=== PATIENT | female | born 1980 | race Caucasian/White ===

== ENCOUNTER 2021-04-05 09:59 | Emergency (ER) | payer OTHER, SELFPAY ==
[2021-04-05 10:10] VITALS: BP 174/107; PULSE 79; RESP 18; TEMP 36.9; O2SAT 99
--- NOTE | 2021-04-05 10:22 | ED.URI ---
HPI - URI/Sore Throat General Chief Complaint: Upper Respiratory Infection Stated Complaint: Cough/Congestion Time Seen by Provider: 04/05/21 10:22 Source: patient, RN notes reviewed and old records reviewed Mode of arrival: ambulatory Limitations: no limitations History of Present Illness HPI Narrative: 40-year-old female who presents to [facility] care with complaints of cough, sinus congestion and drainage and sore throat discomfort for the past 2-3 days. Patient states that she went to work with her symptoms and she was sent home and told she had to go to doctor and get cleared to come back to work. Patient reports that she had Bronchitis 2 months ago and continues to have lingering cough plus she continues to use tobacco daily. Patient states that she has not had Covid vaccinations, denies any loss of taste or smell, body aches, fevers, chills, or sweats. MD elicited complaint: cough, sore throat, rhinorrhea and nasal congestion Related Data Home Medications Medication Instructions Recorded Confirmed amlodipine 5 mg PO DAILY 04/05/21 04/05/21 Allergies Allergy/AdvReac Type Severity Reaction Status Date / Time No Known Allergies Allergy Unverified 04/05/21 10:19 Review of Systems Review of Systems: CONSTITUTIONAL: Denies fever, chills, or sweats. EYES: Denies visual changes, redness, or discharge. ENT: Positive rhinorrhea, congestion, sore throat, no otalgia. CARDIOVASCULAR: Denies chest pain, palpitations, or edema. RESPIRATORY: positive for cough denies dyspnea. GASTROINTESTINAL: Denies abdominal pain, nausea, vomiting, or diarrhea. GENITOURINARY: Denies dysuria or hematuria. SKIN: Denies rash or itching. MUSCULOSKELETAL: Denies back pain, joint pain, denies any body aches NEUROLOGIC: Positive for headache, no numbness, or weakness. PSYCHIATRIC: Positive for anxiety or depression. All systems reviewed & are unremarkable except as noted in HPI and below PMFSH Past Medical History Medical History (Updated 04/06/21 @ 00:00 by [facility]) Anxiety and depression Hx of migraines Hypertension Surgical History Surgical History (Updated 04/05/21 @ 10:24 by Rachel Ledezma, [place]) History of hysterectomy History of tonsillectomy and adenoidectomy Hx of cholecystectomy Family History Family History (Updated 04/06/21 @ 10:00 by Rachel Ledezma NP) Mother Hypertension Heart disease Diabetes mellitus Grandparent Diabetes mellitus Cerebrovascular accident Breast cancer Social History Social History (Updated 04/06/21 @ 10:02 by Rachel Ledezma NP) Smoking status: Current every day smoker Alcohol intake: current Alcohol use details: social Substance use: never Living arrangements: with family Gender identity (if verbalized by the patient): Female Comments At time of signature, agree with nursing past medical, surgical, social and family history. There is no relevant family history pertinent to the presenting complaint Exam Narrative: GENERAL: Well-appearing, well-nourished, and in no acute distress. HEAD: Normocephalic, atraumatic. EYES: PERRLA and EOMI. ENT: Nares patent with clear rhinorrhea no epistaxis. Mucous membranes moist.TM's normal with good light reflex, throat red with no lesions or exudates, tonsils absent, some post nasal drainage present. NECK: Supple.no lymphadenopathy CHEST: Clear to auscultation. No respiratory distress.SAO2 99% on room air HEART: Regular rate and rhythm. No murmur heard. Normal peripheral pulses. ABDOMEN: Soft, nontender, nondistended, normal active bowel sounds. EXTREMITIES: Normal range of motion. No edema. SKIN: Warm, dry, no rash. NEURO: No focal deficits. Alert and oriented x3. Course Vital Signs Vital signs: Vital Signs Temperature 36.9 C 04/05/21 10:10 Pulse Rate 79 04/05/21 10:10 Respiratory Rate 18 04/05/21 10:10 Blood Pressure 174/107 H 04/05/21 10:10 Pulse Oximetry 99 04/05/21 10:10 Temperature 36
== END 2021-04-05 11:06 | disposition home or self-care (01) ==
PROVIDERS: Emergency Provider Registered Nurse
DX: J06.9 Acute upper respiratory infection, unspecified (principal); Z20.822 Contact with and (suspected) exposure to COVID-19; I10 Essential (primary) hypertension
CPT/HCPCS: 87081; 87426; 87880; 99213; C9803; G0463

== ENCOUNTER 2024-05-24 11:52 | Emergency (ER) | payer OTHER, SELFPAY ==
[2024-05-24 11:59] VITALS: BP 129/88; PULSE 89; RESP 16; TEMP 36.8; O2SAT 98
--- NOTE | 2024-05-24 12:00 | ED.EYEPROB ---
HPI - Eye Problem General Chief complaint: Eye Problems Stated complaint: Eye Problem Time Seen by Provider: 05/24/24 12:18 Source: patient, RN notes reviewed and old records reviewed Mode of arrival: ambulatory Limitations: no limitations History of Present Illness HPI Narrative: 43 year old female who presents to [facility] care with complaints of awakening this morning with right eye red,painful and with some yellow green drainage. Patient reports that she has been exposed to pink eye. Patient reports no acute pain to her right eye or visual changes. patient reports that she did have some headache congestion about 2 weeks ago but that has resolved. chief complaint: eye redness and other (drainage) Onset (ago): day(s) (1) Onset description: awoke with symptoms Eye Symptoms: redness and discharge Severity: moderate Treatments Prior to Arrival: other (warm compress) Related Data Home Medications ?Medication ?Instructions ?Recorded ?Confirmed ?Last Taken ?Type amlodipine 5 mg tablet 5 mg PO DAILY 04/05/21 04/05/21 Unknown History atorvastatin 10 mg tablet mg 05/24/24 Unknown History metformin 500 mg tablet,extended mg PO 05/24/24 Unknown History release 24 hr semaglutide 3 mg tablet (Rybelsus) mg PO 05/24/24 Unknown History valsartan 160 mg tablet mg 05/24/24 Unknown History Allergies Allergy/AdvReac Type Severity Reaction Status Date / Time No Known Allergies Allergy Verified 05/24/24 12:07 Review of Systems Review of Systems: CONSTITUTIONAL: Denies malaise, chills, sweats, or fever. EYES: Denies visual changes, positive for redness, or discharge right eye ENT: Reports no rhinorrhea, congestion, sinus pain, otalgia and sore throat. CARDIOVASCULAR: Denies chest pain, palpitations, or edema. RESPIRATORY: Reports no cough.? Denies dyspnea. GASTROINTESTINAL: Denies abdominal pain, nausea, vomiting, diarrhea SKIN: Denies rash or itching. MUSCULOSKELETAL: Denies myalgia. NEUROLOGIC: Denies headache. All systems reviewed & are unremarkable except as noted in HPI and below PMFSH Past Medical History Medical History Hyperlipidemia Diabetes Anxiety and depression Hx of migraines Hypertension Surgical History Surgical History History of tonsillectomy and adenoidectomy History of hysterectomy Hx of cholecystectomy Family History Family History Mother Hypertension Heart disease Diabetes mellitus Grandparent Diabetes mellitus Cerebrovascular accident Breast cancer Social History Social History Smoking status: Current every day smoker Alcohol intake: current Alcohol use details: social Substance use: never Living arrangements: with family Gender identity (if verbalized by the patient): Female Comments At time of signature, agree with nursing past medical, surgical, social and family history. There is no relevant family history pertinent to the presenting complaint Exam Narrative: GENERAL: Well-appearing, well-nourished, and in no acute distress. HEAD: Normocephalic EYES: PERRLA, conjunctivae red and sclera red with greenish yellow drainage from right eye, no visual changes or sharp pain to right eye, Visual acuity Right 20/40. Left 20/25 without corrective lenses. ENT: Nares clear, turbinates edematous and erythematous, clear discharge. Mucous membranes moist. TM pearly smalls with dull light reflex bilaterally; no tragal tenderness. Oropharynx erythematous without lesions. Tonsils not present and throat without exudate, no drooling, no hoarseness, no trismus, uvula midline. NECK: Supple. No lymphadenopathy CHEST: Clear to auscultation, breath sounds equal. No wheezing, rhonchi, rales, or stridor. No respiratory distress, speaks in full sentences.SAO2 98% on room air HEART: Regular rate and rhythm. No murmur heard. SKIN: Warm, dry, no rash. NEURO: Alert and oriented x3. PSYCH: Normal mood and affect Course Course Emergency Course: Patient is aware of diagnosis, understands and agrees to treatment plan.? Anticipatory guidance given.? Patient agrees to follow-up as directed and is aware of reasons to seek care at the emergency department. Portions of this record may have been created with voice recognition software Level of Care: Express Care Visit Vital Signs Vital signs: Vital Signs Temperature 36.8 C 05/24/24 11:59 Pulse Rate 89 05/24/24 11:59 Respiratory Rate 16 05/24/24 11:59 Blood Pressure 129/88 05/24/24 11:59 Pulse Oximetry 98 05/24/24 11:59 Oxygen Delivery Room Air 05/24/24 11:59 Temperature 36.8 C 05/24/24 11:59 Pulse Rate 89 05/24/24 11:59 Respiratory Rate 16 05/24/24 11:59 Blood Pressure 129/88 05/24/24 11:59 Pulse Oximetry 98 05/24/24 11:59 Oxygen Delivery Room Air 05/24/24 11:59 Reviewed MDM - Eye Problem Differential Diagnosis Differential diagnosis: Likely conjunctivitis, subconjunctival hemorrhage and other (mucoid drainage right eye) Medical Records Attestation: I reviewed the patient's medical records. Lab Data Attestation: I reviewed the patient's lab results. Critical Care Time Critical Care Time Critical Care Time: No Discharge Plan Discharge Clinical Impression: Conjunctivitis of right eye Qualifiers: Conjunctivitis type: acute Acute conjunctivitis type: unspecified Qualified Code(s): H10.31 - Unspecified acute conjunctivitis, right eye Patient Disposition: Home, Self-Care Condition: Stable Instructions: Antibiotic Form, Conjunctivitis (ED) Additional Instructions: Cold compresses to the eyes for comfort May need warm compresses to remove debris in the morning When cleaning the eyes used a washcloth in one direction then change washcloths or use a cotton ball in one direction and then his cotton balls Eyedrops as directed--may be more soothing if left in the refrigerator Do not share medicine--do not touch the eye with the medicine Tylenol or ibuprofen for pain Avoid screen time--television, computer, tablet or phone. Also no reading or driving Follow-up with PCP or special education assistant as directed if no improvement 48 hours If your symptoms persist, change or worsen significantly before you can contact your personal physician then please, without delay, go to the emergency department for further evaluation. Follow-up with PCP in 7-10 days or sooner if needed Follow up with PCP soon in regards to your blood pressure which is elevated above threshold for referral. Blood pressure above 120/80 may indicate pre-hypertension. 129/88 Use good hand washing Patient Language: Indonesian Prescriptions: New ofloxacin 0.3 % drops See Rx Instructions .ROUTE .COMPLEX Qty: 10 0RF Rx Instructions: put 1-2 drps into affected eye(s) every 2-4 h x 2 days, then 1-2 drps 4 times/day days 3-7 No Action amlodipine 5 mg tablet 5 mg PO DAILY atorvastatin 10 mg tablet metformin 500 mg tablet extended release 24 hr PO valsartan 160 mg tablet Rybelsus 3 mg tablet PO Follow-up/Referrals: PHYSICIAN NOT ON STAFF,NONSTAFF [Primary Care Provider] - Stand Alone Forms: Work/School Release IP Time of Disposition: 12:26 Quality [place] Coma Scale Eyes: Open Verbal: Oriented and Alert Motor: Follows Commands [place] Coma Total Score: 15
--- OUTSIDE RECORDS SUMMARY | 2024-05-24 13:14 | XMS_ITS | Referral Summary ---
Author Organization [facility] Address [address] [place] [address] Care Team Providers Care Side Puller Name Role Phone Jeremiah Thomas MD Primary Care Provider [phone] Encounters Date Type Department Care Team Description 05/17/2024 Telephone [facility] 4 [facility] [address] [place] [address] Nadya Henriquez, SCRAP COLLECTOR 05/01/2024 7:30 AM DIRECTOR CLOUD TRANSFORMATION Office Visit [facility] Primary Care at [address] [phone] Jeremiah Thomas MD Annual physical exam (Primary Dx); Type 2 diabetes mellitus with hyperglycemia, without long-term current use of insulin (HCC); Hypertension, essential; Class 2 severe obesity due to excess calories with serious comorbidity and body mass index (BMI) of 37.0 to 37.9 in adult (HCC); Morbid obesity (HCC); Dizziness 04/26/2024 Telephone [facility] Primary Care at [address] [phone] Jeremiah Thomas MD 03/03/2024 Telephone [facility] Primary Care at [address] [phone] Jeremiah Thomas MD from Last 3 Months Allergies No known active allergies Medications atorvastatin (LIPITOR) 10 mg tablet Take 1 tablet (10 mg total) by mouth daily 90 tablet 3 11/24/19 24 025 Active valsartan (DIOVAN) 320 mg tablet Take 1 tablet (320 mg total) by mouth daily 90 tablet 1 09/13/20 24 025 Active metFORMIN XR (GLUCOPHAGE XR) 500 mg 24 hr tablet Take 2 tablets (1,000 mg total) by mouth 2 (two) times a day 360 tablet 1 01/26/20 24 025 Active dulaglutide (TRULICITY) 0.75 mg/0.5 mL pen injector Inject 0.5 mL (0.75 mg total) under the skin every 7 days 6 mL 02/08/20 24 Active amLODIPine (NORVASC) 5 mg tablet Take 1 tablet (5 mg total) by mouth daily 100 tablet 1 02/11/20 24 Active triamcinolone (KENALOG) 0.1 % ointmentIndicati ons:Skin Inflammation Apply topically 2 (two) times a day 30 g 1 02/15/20 24 Active semaglutide (RYBELSUS) 7 mg tablet Take 1 tablet (7 mg total) 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 90 tablet 03/30/20 24 025 Active metroNIDAZOLE (FLAGYL) 500 mg tablet Take 1 tablet (500 mg total) by mouth 2 (two) times a day for 7 days 14 tablet 05/17/19 25 025 Active chlorthalidone (HYGROTON) 25 mg tablet Take 1 tablet (25 mg total) by mouth daily 90 tablet 1 01/26/20 24 025 Discontinued Active Problems Problem Noted Date Diagnosed Date History of abnormal cervical Pap smear 4 Type 2 diabetes mellitus with hyperglycemia ([facility]) 11/24/2023 Assessment & Plan (05/01/2024 7:49 AM DIRECTOR CLOUD TRANSFORMATION): Lab Results Component Value Date HGBA1C 6.2 05/01/2024 HGBA1C 10.9 (H) 11/18/2023 HGBA1C 5.9 (H) 08/28/2021 Lab Results Component Value Date LDLCALC 90 11/18/2023 CREATININE 0.59 (L) 11/18/2023 Significant improvement Last A1c was above C/w metformin, rybelsus 7 mg C/w lipitor 10 mg every day C/w valsartan 320 mg start chlorthalidone Assessment & Plan (01/26/2024 4:10 PM CDT): Lab Results Component Value Date HGBA1C 10.9 (H) 11/18/2023 HGBA1C 5.9 (H) 08/28/2021 HGBA1C 5.4 06/04/2017 Lab Results Component Value Date LDLCALC 90 11/18/2023 CREATININE 0.59 (L) 11/18/2023 New dx Significant increase in last 2 years Last A1c was above C/w metformin with ramp up C/w lipitor 10 mg every day C/w valsartan 320 mg start chlorthalidone Assessment & Plan (11/24/2023 3:41 PM CDT): Lab Results Component Value Date HGBA1C 10.9 (H) 11/18/2023 HGBA1C 5.9 (H) 08/28/2021 HGBA1C 5.4 06/04/2017 Lab Results Component Value Date LDLCALC 90 11/18/2023 CREATININE 0.59 (L) 11/18/2023 New dx Significant increase in last 2 years Last A1c was above Start metformin with ramp up Start lipitor 10 mg every day C/w valsartan 160 mg every day for renal protection Check microalbumin Annual physical exam 11/18/2023 Assessment & Plan (05/01/2024 7:52 AM DIRECTOR CLOUD TRANSFORMATION): Discussed lifestyle modifications, diet and exercise. Routine blood work ordered/reviewed today. Yearly vision and dental examinations. Assessment & Plan (11/18/2023 3:29 PM CDT): Discussed lifestyle modifications, diet and exercise. Routine blood work ordered/reviewed today. Yearly vision and dental examinations. New onset type 2 diabetes mellitus ([facility]) 04/2023 Assessment & Plan (11/18/2023 3:29 PM CDT): Lab Results Component Value Date HGBA1C 5.9 (H) 08/28/2021 HGBA1C 5.4 06/04/2017 Lab Results Component Value Date LDLCALC 92 08/28/2021 CREATININE 0.76 08/28/2021 Previously controlled but worsening However, now she states she has been very thirsty and urinating frequently Morbid obesity 11/18/2023 Assessment & Plan (05/01/2024 7:48 AM DIRECTOR CLOUD TRANSFORMATION): Wt Readings from Last 3 Encounters: 05/01/24 132.6 kg (292 lb 4.8 oz) 02/15/24 (!) 142.3 kg (313 lb 12.8 oz) 01/26/24 (!) 147.4 kg (325 lb) BMI Readings from Last 3 Encounters: 05/01/24 37.51 kg/m?? 02/15/24 40.29 kg/m?? 01/26/24 41.71 kg/m?? Not at goal of bmi <30 Continue diet and exercise BMI Follow-up includes: nutrition counseling and exercise counseling. Assessment & Plan (01/26/2024 4:13 PM CDT): Wt Readings from Last 3 Encounters: 01/26/24 (!) 147.4 kg (325 lb) 11/24/23 (!) 157.6 kg (347 lb 8 oz) 11/18/23 (!) 158.5 kg (349 lb 6.4 oz) BMI Readings from Last 3 Encounters: 01/26/24 41.71 kg/m?? 11/24/23 44.60 kg/m?? 11/18/23 44.84 kg/m?? Not at goal of bmi <30 Continue diet and exercise BMI Follow-up includes: nutrition counseling and exercise counseling. Assessment & Plan (11/24/2023 3:58 PM CDT): Wt Readings from Last 3 Encounters: 11/24/23 (!) 157.6 kg (347 lb 8 oz) 11/18/23 (!) 158.5 kg (349 lb 6.4 oz) 11/27/21 (!) 154.2 kg (340 lb) BMI Readings from Last 3 Encounters: 11/24/23 44.60 kg/m?? 11/18/23 44.84 kg/m?? 11/27/21 43.63 kg/m?? Not at goal of bmi <30 Continue diet and exercise BMI Follow-up includes: nutrition counseling and exercise counseling. Assessment & Plan (11/18/2023 3:30 PM CDT): Wt Readings from Last 3 Encounters: 11/18/23 (!) 158.5 kg (349 lb 6.4 oz) 11/27/21 (!) 154.2 kg (340 lb) 08/28/21 (!) 151.5 kg (334 lb 1.6 oz) BMI Readings from Last 3 Encounters: 11/18/23 44.84 kg/m?? 11/27/21 43.63 kg/m?? 08/28/21 42.88 kg/m?? Not at goal of bmi <30 Continue diet and exercise BMI Follow-up includes: nutrition counseling and exercise counseling. Anxiety and depression 11/27/2021 Assessment & Plan (11/18/2023 3:29 PM CDT): Stable at this time Continue without medication Can discuss again in the future No concerns now Assessment & Plan (11/27/2021 4:36 PM CDT): Not well controlled at this time. Did not tolerate wellbutrin. also was on trazodone but did not work for her. S tates that she was previously on zoloft and that didn't work for her either Will do trial with lexapro 10 mg every day, can increase to BID in a few weeks if she is tolerating Class 2 severe obesity due t o excess calories with serious comorbidity and body mass index (BMI) of 37.0 to 37.9 in adult 08/28/2021 Assessment & Plan (05/01/2024 7:48 AM DIRECTOR CLOUD TRANSFORMATION): Wt Readings from Last 3 Encounters: 05/01/24 132.6 kg (292 lb 4.8 oz) 02/15/24 (!) 142.3 kg (313 lb 12.8 oz) 01/26/24 (!) 147.4 kg (325 lb) Wt Readings from Last 7 Encounters: 05/01/24 132.6 kg (292 lb 4.8 oz) 02/15/24 (!) 142.3 kg (313 lb 12.8 oz) 01/26/24 (!) 147.4 kg (325 lb) 11/24/23 (!) 157.6 kg (347 lb 8 oz) 11/18/23 (!) 158.5 kg (349 lb 6.4 oz) 11/27/21 (!) 154.2 kg (340 lb) 08/28/21 (!) 151.5 kg (334 lb 1.6 oz) BMI Readings from Last 3 Encounters: 05/01/24 37.51 kg/m?? 02/15/24 40.29 kg/m?? 01/26/24 41.71 kg/m?? Not at goal of bmi <30 Continue diet and exercise BMI Follow-up includes: nutrition counseling and exercise counseling. Assessment & Plan (01/26/2024 4:10 PM CDT): Wt Readings from Last 3 Encounters: 01/26/24 (!) 147.4 kg (325 lb) 11/24/23 (!) 157.6 kg (347 lb 8 oz) 11/18/23 (!) 158.5 kg (349 lb 6.4 oz) BMI Readings from Last 3 Encounters: 01/26/24 41.71 kg/m?? 11/24/23 44.60 kg/m?? 11/18/23 44.84 kg/m?? Not at goal of bmi <30 Continue diet and exercise BMI Follow-up includes: nutrition counseling and exercise counseling. Assessment & Plan (11/24/2023 3:58 PM CDT): Wt Readings from Last 3 Encounters: 11/24/23 (!) 157.6 kg (347 lb 8 oz) 11/18/23 (!) 158.5 kg (349 lb 6.4 oz) 11/27/21 (!) 154.2 kg (340 lb) BMI Readings from Last 3 Encounters: 11/24/23 44.60 kg/m?? 11/18/23 44.84 kg/m?? 11/27/21 43.63 kg/m?? Not at goal of bmi <30 Continue diet and exercise BMI Follow-up includes: nutrition counseling and exercise counseling. Assessment & Plan (11/18/2023 3:20 PM CDT): Wt Readings from Last 3 Encounters: 11/18/23 (!) 158.5 kg (349 lb 6.4 oz) 11/27/21 (!) 154.2 kg (340 lb) 08/28/21 (!) 151.5 kg (334 lb 1.6 oz) BMI Readings from Last 3 Encounters: 11/18/23 44.84 kg/m?? 11/27/21 43.63 kg/m?? 08/28/21 42.88 kg/m?? Not at goal of bmi <30 Continue diet and exercise BMI Follow-up includes: nutrition counseling and exercise counseling. Assessment & Plan (11/27/2021 4:35 PM CDT): HPI: Condition is not at/near goal A&P: Discussed/ordered labs, encouraged healthy, low carbohydrate lifestyle and at least 150min/week of exercise BMI Follow-up includes: nutrition counseling, exercise counseling and education provided. Assessment & Plan (08/28/2021 3:04 PM CDT): HPI: Condition is not at/near goal A&P: Discussed/ordered labs, encouraged healthy, low carbohydrate lifestyle and at least 150min/week of exercise BMI Follow-up includes: nutrition counseling, exercise counseling and education provided. Hypertension, essential 08/28/2021 Assessment & Plan (05/01/2024 7:47 AM DIRECTOR CLOUD TRANSFORMATION): BP Readings from Last 3 Encounters: 05/01/24 112/60 02/15/24 128/84 01/26/24 148/100 Vitals BP 112/60 (BP Location: Left arm, Patient Position: Sitting) Pulse 110 Resp 16 Ht 188 cm (6' 2.02 ) Wt 132.6 kg (292 lb 4.8 oz) LMP 02/11/2017 SpO2 98% BMI 37.51 kg/m?? Lab Results Component Value Date POTASSIUM 3.8 11/18/2023 At goal at this time However, pt has been having side effects to the medication, including dizziness Stop chlorthalidone now, Increase po water intake Assessment & Plan (01/26/2024 4:13 PM CDT): BP Readings from Last 3 Encounters: 01/26/24 148/100 11/24/23 (!) 162/110 11/18/23 (!) 170/118 Vitals BP 148/100 (BP Location: Left arm, Patient Position: Sitting) Pulse 93 Resp 16 Ht 188 cm (6' 2.02 ) Wt (!) 147.4 kg (325 lb) LMP 02/11/2017 SpO2 99% BMI 41.71 kg/m?? Lab Results Component Value Date POTASSIUM 3.8 11/18/2023 Not at goal at this time, improved Continue valsartan 320 mg every day, norvasc 5 mg every day, start chlorthalidone 25 mg every day Assessment & Plan (11/24/2023 3:53 PM CDT): BP Readings from Last 3 Encounters: 11/24/23 (!) 162/110 11/18/23 (!) 170/118 11/27/21 (!) 173/118 Vitals BP (!) 162/110 (BP Location: Left arm, Patient Position: Sitting) Pulse 101 Resp 16 Ht 188 cm (6' 2.02 ) Wt (!) 157.6 kg (347 lb 8 oz) LMP 02/11/2017 SpO2 94% BMI 44.60 kg/m?? Lab Results Component Value Date POTASSIUM 3.8 11/18/2023 Not at goal at this time Increase valsartan 160 to bid Assessment & Plan (11/18/2023 3:28 PM CDT): BP Readings from Last 3 Encounters: 11/18/23 (!) 170/118 11/27/21 (!) 173/118 08/28/21 (!) 160/110 Vitals BP (!) 170/118 (BP Location: Left arm, Patient Position: Sitting) Pulse 106 Resp 16 Ht 188 cm (6' 2.02 ) Wt (!) 158.5 kg (349 lb 6.4 oz) LMP 02/11/2017 SpO2 98% BMI 44.84 kg/m?? Lab Results Component Value Date POTASSIUM 3.9 08/28/2021 Not at goal Has been lost to follow up Signifincalty uncontrolled Seems like depsite norvasc previously and valsartan was still nto controlled Restart amlodipine 5 mg (had swelling at 10 mg) Start valsartan 160 mg every day Rtc in 4-6 weeks Assessment & Plan (11/27/2021 4:36 PM CDT): Not at goal - will decrease amlodipine due to side effect of ankle swelling, and start valsartan at 40 mg bid and have her rtc in 4 weeks for repeat bp check. Pt is otherwise asymptoamtic. Assessment & Plan (08/28/2021 3:04 PM CDT): Not at all controlled Will restart on norvac 10 mg every day, and have her rtc in about 2 weeks for repeat bp check. ED precautions given Should start checking BP daily at home Otherwise needs to make diet and exercise changes Blood Pressure Follow-up: Lifestyle modifications education provided on sodium reduction, increase physical activity, reduce alcohol consumption and weight reduction. Chronic migraine without aur a without status migrainosus, not intractable 08/28/2021 Assessment & Plan (08/28/2021 3:29 PM CDT): Not well controlled - states that imitrex does help significantly - Resolved Problems Problem Noted Date Diagnosed Date Resolved Date Acute bronchitis 04/22/2021 08/28/2021 Suspected COVID-19 virus infection 04/22/2021 08/28/2021 Cough 05/27/2015 08/28/2021 Overview (07/23/2016): Cough Immunizations Name Administration Dates Next Due Influenza, Quadrivalent, Spl it, Preservative Free, Intramuscular 03/04/2017 Influenza, Unspecified 05/01/2024(Deferr ed: Patient Refused),01/26/2024(Deferred: Patient Refused),11/24/2023(Deferred: Patient Refused),07/17/2022(Deferred: Patient Refused),01/17/2021(Deferred: Patient Refused),01/18/2020(Deferred: Patient Refused) Pneumococcal Polysaccharide PPV23 03/04/2017 Tdap 04/30/2023 Social History Tobacco Use Types Packs/Day Years Used Date Smoking Tobacco: Former Cigarettes 1 21 Smokeless Tobacco: Never Tobacco Cessation:Counseling Given: Not Answered Alcohol Use Standard Drinks/Week Comments Yes 0 (1 standard drink = 0.6 oz pur e alcohol) AUDIT-C Answer Date Recorded Q1: How often do you have a drink containing alc ohol? Never 02/15/2024 Q2: How many drinks containi ng alcohol do you have on a typical day when you are drinking? 1 or 2 02/15/2024 Q3: How often do you have six or more drinks on one occasion? Never 02/15/2024 PHQ-2 Answer Date Recorded PHQ-2 Total Score (If total score is 3 or more points, staff should administer the PHQ-9) 0 05/01/2024 Comments No Sex and Gender Information Value Date Recorded Sex Assigned at Not on file Legal Sex Female 1:47 AM DIRECTOR CLOUD TRANSFORMATION Gender Identity Not on file Sexual Orientation Not on file Last Filed Vital Signs Vital Sign Reading Time Taken Comments Blood Pressure 112/60 05/01/2024 7:23 AM DIRECTOR CLOUD TRANSFORMATION Pulse 110 05/01/2024 7:23 AM DIRECTOR CLOUD TRANSFORMATION Temperature 36.6 ??C (97.8 ??F) 11/27/2021 4:18 PM CD T Respiratory Rate 16 05/01/2024 7:23 AM DIRECTOR CLOUD TRANSFORMATION Oxygen Saturation 98% 05/01/2024 7:23 AM DIRECTOR CLOUD TRANSFORMATION Inhaled Oxygen Concentration - - Weight 132.6 kg (292 lb 4.8 oz) 05/01/2024 7:23 AM DIRECTOR CLOUD TRANSFORMATION Height 188 cm (6' 2.02 ) 05/01/2024 7:23 AM DIRECTOR CLOUD TRANSFORMATION Body Mass Index 37.51 05/01/2024 7:23 AM DIRECTOR CLOUD TRANSFORMATION Plan of Treatment Not on file Procedures Procedure Name Priority Date/Time Associated Diagnosis Comments POCT HEMOGLOBIN A1C Routine 05/01/2024 7:32 AM DIRECTOR CLOUD TRANSFORMATION Type 2 diabetes mellitus with hyperglycemia, without long-term current use of insulin (HCC) HIGH RISK HPV DNA DETECTION WITH GENOTYPING Routine 02/15/2024 1:12 PM CDT Well woman exam DIAGNOSTIC MAMMOGRAM BILATERAL W EDWARD Schedule Routine, Read Routine (OP Routine) 12/02/2023 9:50 AM CDT Abnormal mammogram HEPATITIS C ANTIBODY Routine 11/18/2023 3:45 PM CDT Need for hepatitis B screening test EGFR Routine 11/18/2023 3:45 PM CDT Prediabetes LIPID PANEL Routine 11/18/2023 3:45 PM CDT Lipid screening ALBUMIN CREATININE RATIO, URINE Routine 11/18/2023 3:45 PM CDT Hypertension, essential Prediabetes from Last 3 Months or Most Recently Relevant to Health Maintenance Results * (ABNORMAL) POCT hemoglobin A1c (05/01/2024 7:32 AM DIRECTOR CLOUD TRANSFORMATION) Pathologist [facility] Hemoglobin A1C, POC 6.2 4.0 - 5.6 % Capillary blood 05/01/2024 7 :32 AM DIRECTOR CLOUD TRANSFORMATION Jeremiah Thomas MD POINT OF CARE TEST ORDERABLES Fi nal Result * High Risk HPV DNA Detection with Genotyping (Molecular component) (02/15/2024 1:12 PM CDT) [facility] HPV HR 16 Not Detected Not Detected [facility] Comment:Testing performed by : [facility], [address] [place]., [address] HPV HR 18 Not Detected Not Detected [facility] Comment:Testing performed by : [facility], [address] [place]., [address] HPV HR Non 16/18 Not Detected Not Detected [facility] Comment: Interpretive Data Nucleic acid amplification for detection of high-risk Human Papilloma virus (HPV) is performed by the Onelia Arjun 6800 HPV test. ??This assay specifically detects HPV-16 and HPV-18 genotypes. ??The following HPV genotypes are detected as high-risk HPV: ?? HPV-31, 33, 35, ,39, 45, 51, 52, 56, 58, 59, 66, and 68. ??This assay has been approved by the [place] Food and Drug Administration for detection of HPV in cervical specimens collected by a physician using an endocervical brush/spatula or cervical broom and placed in the ThinPrep Pap Test PreservCyt collection containers. ??The performance characteristics of this test have been verified by the [facility] Disease laboratory. Correlate with separately reported cytology results, as applicable. Interpretive data last revised 22 Testing performed by: [facility], [address] [place]., [address] Endocervical 02/15/2024 1:12 PM CDT 02/16/2024 12:28 PM CDT Narrative SARAH COSTA - 02/16/2024 5:55 PM CDT Clinical history and diagnosis->hyst Number of vials->1 Testing type->Screening Last menstrual period (date if known)->hyst us Nadya Henriquez NP LAB BODY FLUIDS AND STOOLS ORDER YENI Final Result SARAH COSTA [id number] [address] Department [place] [address] [facility] * Diagnostic Mammogram Bilateral W Edward (12/02/2023 9:50 AM CDT) Anatomical Region Laterality Modality Breast Bilateral Mammography 12/02/2023 10:2 1 AM CDT Impressions 12/02/2023 10:21 AM CDT ACR BI-RADS Category 2 - Benign. COMMENTS: ?? EXAM: Left Breast Ultrasound ?? focal limited ??Ultrasound was performed [id number] EXAM DATE AND TIME: 12/02/2023 10:00 AM HISTORY: Bilateral asymmetries. ??Recall 3-D spot compression and ultrasound for evaluate COMPARISON: 11/25/2023 TISSUE DENSITY: There are scattered fibroglandular densities (25% - 50%) ? TECHNIQUE: focal limited ??Ultrasound was performed FINDINGS multiple benign intramammary lymph nodes at 2:00 13 cm from the nipple and 2:00 10 cm from the nipple. ??No features of malignancy these findings are compatible with the mammographic features.: ASSESSMENT: Benign intramammary nodes. ??No malignancy IMPRESSION: ACR BI-RADS Category 2 - Benign. EXAM: Right Breast Ultrasound ??focal limited ??Ultrasound was performed [id number] EXAM DATE AND TIME:12/02/2023 10:00 AM HISTORY: Bilateral asymmetries. ??Recall 3-D spot compression and ultrasound for evaluate COMPARISON STUDIES: 11/25/2023 TISSUE DENSITY: There are scattered fibroglandular densities (25% - 50%) ? TECHNIQUE: focal limited ??Ultrasound was performed FINDINGS: In the area of mammographic concern there is at 1:00 10 cm from the nipple subcentimeter benign cysts. ??No features of malignancy. ??Regular fibrocystic ridges. ASSESSMENT: Normal IMPRESSION: ACR BI-RADS Category 2 - Benign. RECOMMENDATION: 1: Routine screening mammogram bilateral ??in 1 Year 2: COMMENTS: Thank you for your referral. Electronically signed by: Ascencion Terry MD Narrative 12/02/2023 10:21 AM CDT EXAM: DIAGNOSTIC MAMMOGRAM BILATERAL W EDWARD, US BREAST BILATERAL LIMITED EXAM: Bilateral Diagnostic Mammogram [id number] EXAM DATE AND TIME: 12/02/2023 10:00 AM HISTORY: Bilateral asymmetries recent mammogram 11/25/2023. ??Recall 3-D spot compression and ultrasound for evaluate TISSUE DENSITY: There are scattered fibroglandular densities (25% - 50%) ? COMPARISON: 11/25/2023 TECHNIQUE- 3D spot compression views ??with Edward and lateral view were obtained FINDINGS- on the right side there is no dominant mass. ??The focal spot compression reveals linear tubular components of fibrocystic change. ??No features of malignancy mammographically. On the left side: There is a benign appearing nodular density in the upper outer quadrant sustained with both compression. ??No features of malignancy. ??See ultrasound ASSESSMENT: There is no evidence of malignancy. us Jeremiah Thomas MD IMG MAMMO PROCEDURES Final Resul t * eGFR (11/18/2023 3:45 PM CDT) eGFR >90 >=60 mL/min/1. 73 m2 Comment: Interpretive Data Reference Interval Normal ?>/= 90 mL/min/1.73m2 Mildly decreased* ? 60 - 89 mL/min/1.73m2 Mildly to moderately decreased ?45 - 59 mL/min/1.73m2 Moderately to severely decreased ??30 - 44 mL/min/1.73m2 Severely decreased ?15 - 29 mL/min/1.73m2 Kidney Failure ?< 15 ??mL/min/1.73m2 *Relative to young adult level Estimated glomerular filtration rate is determined by the 2020 CKD-EPI equation recommended by the National Kidney Foundation (A Unifying Approach to GFR Estimation: Recommendations of the NKF-ASK Task Force on Reassessing the Inclusion of Race in Diagnosing Kidney Disease, JASN 2020). The CKD-EPI equation should not be used for patients with unstable renal function and has not been validated in children and those over 70. Current interpretive data was last reviewed 2021. Blood 11/18/2023 3:45 PM CDT 11/18/2023 4:14 PM CDT us Jeremiah Thomas MD LAB BLOOD ORDERABLES Final Resul t [facility] [place] Department [place] [address] * Hepatitis C antibody Blood (11/18/2023 3:45 PM CDT) Hep C Ab Nonreactive Nonreactive Comment: Interpretive Data Nonreactive: Antibodies to HCV not detected. Does NOT exclude the possibility of recent exposure to HCV. Equivocal: Equivocal for HCV antibodies. Supplemental molecular testing will be automatically performed to determine infection status in accordance with current CDC screening recommendations. ?? Reactive: Positive for HCV antibodies. ??This may represent current or past HCV infection. Supplemental molecular testing will be automatically performed to determine ??current infection status in accordance with current CDC screening recommendations. Interpretive data was last revised on 2019. Testing performed by: [facility], [address] [place] [address]., [id number] Blood 11/18/2023 3:45 PM CDT 11/19/2023 9:05 AM CDT Jeremiah Thomas MD LAB MICROBIOLOGY - GENERAL ORDER YENI Edited Result - Final Performing Organization Address City/[facility]/ZIP Co de Phone Number SARAH DUKES (KERI) 1 [facility] [place] [address] * (ABNORMAL) Albumin Creatinine Ratio, Urine (11/18/2023 3:45 PM CDT) Albumin Ur 212.1 mg/L Comment: Interpretive Data No reference range established. Current interpretive data was last revised 2018. Testing performed by: [facility], [address] [place] [address]., [id number] Creatinine Ur 173.0 mg/dL SARAH DUKES (KERI) Comment: Interpretive Data No reference range established. Current interpretive data was last revised 2018. Testing performed by: [facility], [address] [place] [address]., [id number] Albumin Creatinine Ratio, Ur 123(H) 1 - 29 mg/g SARAH DUKES (KERI) Comment:Testing performed by : [facility], [address] [place] [address]., [id number] Urine 11/18/2023 3:45 PM CDT 11/19/2023 9:05 AM CDT Jeremiah Thomas MD LAB URINE ORDERABLES Final Resul t Performing Organization Address City/[facility]/ZIP Co de Phone Number SARAH DUKES (KERI) 1 [facility] [place] [address] * (ABNORMAL) Lipid panel (11/18/2023 3:45 PM CDT) Cholesterol 168 30 - 199 mg/dL Comment: Interpretive Data Ages < or = 19 years ??Acceptable: ? <170 mg/dL ??Borderline high: ??170-199 mg/dL ??High: ? >or= 200 mg/dL Ages > or = 20 years ??Desirable: ?<200 mg/dL ??Borderline high: ??200-239 mg/dL ??High: ? >or= 240 mg/dL Literature References: 1. Expert Panel on Integrated Guidelines for Cardiovascular Health and Risk Reduction in Children and Adolescents. Pediatrics 2011;128:S213 2. NCEP Expert Panel. Circulation 2004;110:227 Current Interpretive Data was last revised on 2017. Triglycerides 196(H) <=149 mg/dL SARAH DUKES (KERI) Comment: Interpretive Data Ages < or = 9 years ??Acceptable: ? <75 mg/dL ??Borderline high: ??75-99 mg/dL ??High: ? >or= 100 mg/dL Ages 10 to 20 years ??Acceptable: ? <90 mg/dL ??Borderline high: ??90-129 mg/dL ??High: ? >or= 130 mg/dL Ages > or = 20 years ??Desirable: ?<150 mg/dL ??Borderline high: ??150-199 mg/dL ??High: ? 200-499 mg/dL ?Very high: ?? >or= 499 mg/dL Literature References: 1. Expert Panel on Integrated Guidelines for Cardiovascular Health and Risk Reduction in Children and Adolescents. Pediatrics 2011;128:S213 2. NCEP Expert Panel. Circulation 2004;110:227 Current Interpretive Data was last revised on 2017. HDL 39(L) >=40 mg/dL SARAH DUKES (KERI) Comment: Interpretive Data Ages < or = 19 years ??Acceptable: ? >45 mg/dL ??Borderline low: ?? 40-45 mg/dL ??Low: ? <40 mg/dL Ages > or = 20 years ??Desirable: ?>or= 60 mg/dL ??Low: ? <40 mg/dL Literature References: 1. Expert Panel on Integrated Guidelines for Cardiovascular Health and Risk Reduction in Children and Adolescents. Pediatrics 2011;128:S213 2. NCEP Expert Panel. Circulation 2004;110:227 Current Interpretive Data was last revised on 2017. LDL, calculated 90 <=129 mg/dL SARAH DUKES (KERI) Comment: Interpretive Data Ages < or = 19 years ??Acceptable: ? <110 mg/dL ??Borderline high: ??110-129 mg/dL ??High: ?>or= 130 mg/dL Ages > or = 20 years ??Optimal: ? <100 mg/dL ??Near optimal: ?100-129 mg/dL ??Borderline high: ?? 130-159 mg/dL ??High: ?>160 mg/dL Literature References: 1. Expert Panel on Integrated Guidelines for Cardiovascular Health and Risk Reduction in Children and Adolescents. Pediatrics 2011;128:S213 2. NCEP Expert Panel. Circulation 2004;110:227 Current Interpretive Data was last revised on 2017. Non-HDL Cholesterol 129 mg/dL SARAH DUKES (KERI) Comment: Interpretive Data Ages < or = 19 years ??Acceptable: ?<120 mg/dL ??Borderline high: ??120-144 mg/dL ??High: ?>145 mg/dL Ages > or = 20 years ??When triglycerides are >200 mg/dL, Non-HDL cholesterol is a secondary target of ? therapy with treatment goals that are 30 mg/dL greater than the LDL cholesterol target. ? Literature References: 1. Expert Panel on Integrated Guidelines for Cardiovascular Health and Risk Reduction in Children and Adolescents. Pediatrics 2011;128:S213 2. NCEP Expert Panel. Circulation 2004;110:227 Current Interpretive Data was last revised on 2017. 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
--- OUTSIDE RECORDS SUMMARY | 2024-05-24 13:14 | XMS_ITS | Data Portability ---
Author Organization [facility] [place] Address [address] [place] [address] Assessment No assessment recorded. Plan of Treatment Reminders Order Date Submit Date Provider Last Modified By Organization Details Last Modified Time Details Appointments None recorded. Lab None recorded. Referral None recorded. Procedures None recorded. Surgeries None recorded. Imaging MAMMO, diagnostic , bilateral 2019 RODRIGUEZ Not available 1 05:00:36 Medication Orders clindamyci n HCl 150 mg capsule 2019 INTERFACE Not available 0 14:42:26 Patient TargetsNo targets recorded. Patient InstructionsNo instructions recorded. Reason for Referral None Reported. Results Created Date Observation Date Name Description Value Unit Range Abnormal Flag Note LastModifiedBy Organization Detail LastModifiedTime 01/24/20 20 01/25/2020 cultu re, wound specimen source Breast - Right breast Not Available [facility] ([facility]) Formerly named [facility], [place], [address], 01/27/2020 10:21:52 01/24/20 20 01/25/2020 cultu re, wound gram stain See Below No polym orpho nucle ar leuko cytes seen No organ isms seen Not Available [facility] ([facility]) [address], [place], [address], 01/27/2020 10:21:52 01/24/20 20 01/25/2020 cultu re, wound culture, wound aerobic w/gram stain See Below Cheryl l skin broderick isola jayashree from broth only. No Furth er testi ng indic ated Not Available [facility] ([facility]) [address], [place], [address], 01/27/2020 10:21:52 Result Notes None recorded. Problems Name Problem SNOMED Code Status Onset Date Resolution Date Notes Provider Name and Address Organization Details Recorded Time Lump in upper inner quadrant of left breast 64568552449 4100 Active 2018 Unspecifi ed lump in the left breast, upper inner quadrant; Recorded Elsewhere : No Locati on: [facility] So urce: EHR Chron ic: N Practic e ID: [id number] Bill able Time: 11:00:00 AM Not Available [facility] 0 16:14:43 Breast lump [id number] Active 2018 Unspecifi ed lump in unspecifi ed breast;Re corded Elsewhere : No Locati on: [facility] So urce: EHR Chron ic: N Practic e ID: [id number] Bill able Time: 09:22:17 AM Not Available [facility] 0 16:14:43 Problem Notes None recorded. Procedures Surgical History Date Name Laterality Status Provider Name and Address Organization Details Recorded Time 04/19/19 09 Cholecystectomy completed [facility] 01/24/2020 12:54:40 07/19/19 07 hysterectomy completed [facility] 01/24/2020 12:54:35 Imaging Results None recorded. Procedure Notes None recorded. Medical Equipment None Reported. Medications Name Sig Start Date Stop Date Status Note LastModified by Organization Details LastModified Time clindamyci n HCl 150 mg capsule Take 3 capsules every 8 hours by oral route for 7 days. 2019 active Not Available Not Available Not Avai lable amlodipine 5 mg tablet take 1 tablet by oral route every day active Prescribe d Elsewhere : Yes Locat ion: [facility] Mo dify By: [email or web address] Encounter DateTime: 9 11:00:00 AM Not Available Not Available Not Available Adalat CC 60 mg tablet,ext ended release take 1 tablet by oral route every day active Prescribe d Elsewhere : Yes Locat ion: [facility] Mo dify By: [email or web address] Encounter DateTime: 9 11:00:00 AM Not Available Not Available Not Available hydrochlor othiazide active Not Available Not Available No t Available amlodipine active Not Available Not Av ailable Not Available hydrochlor othiazide 12.5 mg tablet take 1 tablet by oral route every day active Prescribe d Elsewhere : Yes Locat ion: [facility] Mo dify By: [email or web address] Encounter DateTime: 9 11:00:00 AM Not Available Not Available Not Available Vitals Date Recorded Body height Body mass index (BMI) Body weight Systolic blood pressure Diastolic blood pressure Provider Name and Address Organization Details Last Updated DateTime 01/24/2020 185.42 cm 42.6 kg/m2 122679.3 4 g 159 mm[Hg] 100 mm[Hg] Iliana Craft [facility] 0 14:21:38 Social History Question Answer Notes LastModified by Toopher Details LastModified Time Tobacco Smoking Status Current Every Day Smoker Iliana Craft [facility], [facility] 01/24/2020 14:17:30 What Is Your Level Of Alcohol Consumption? Occasional Information not available 01/24/2020 Sex: Unknown Functional Status Question Answer Note LastModified by Toopher Details LastModified Time What is your exercise level? Occasional Information not available 01/24/2020 Mental Status None recorded. Family History Relationship Description Onset Age of this Age Resolved Age Notes LastModified by Organization Details LastModified Time Mother Diabetes mellitus jgumber Not available 2019 12:55:03 Mother Hypertensive disorder jgumber Not available 2019 12:56:08 Mother Disorder of thyroid gland jgumber Not available 2019 12:56:30 Mother Heart disease jgumber Not available 2019 12:56:43 Maternal Grandmother Diabetes mellitus jgumber Not available 2019 12:55:34 Maternal Grandmother Hypertensive disorder jgumber Not available 2019 12:56:08 Maternal Grandmother Heart disease jgumber Not available 2019 12:56:53 Maternal Grandmother Family history of breast cancer jgumber Not available 2019 12:57:14 Maternal Grandmother Malignant tumor of cervix jgumber Not available 2019 12:57:28 Maternal Grandmother Malignant tumor of colon jgumber Not available 2019 12:57:40 Maternal Aunt Diabetes mellitus jgumber Not available 2019 12:55:39 Maternal Aunt Hypertensive disorder jgumber Not available 2019 12:56:08 Maternal Aunt Heart disease jgumber Not available 2019 12:56:58 Maternal Grandfather Malignant tumor of lung jgumber Not available 2019 12:57:52 Notes:Maternal aunt: Diabete s mellitus, Heart disease, Hypertension Maternal grandmother: Cancer, lung, Cancer, colon, Cancer, ovarian, Cancer, cervical, Heart disease, Hypertension, Diabetes mellitus, Cancer, breast Mother: Diabetes mellitus, Heart disease, Hypertension, Thyroid disease Medical History Condition Response Anxiety Disorder Y Other Hypertension Y Gynecological History Statement/Question Response Current Control Method Hysterectom y Obstetrics History GPAL:G 2 P 0 0 0 0 Past Encounters Encounter ID Performer Location Encounter Start Date Encounter Closed Date Diagnosis/Indication Diagnosis SNOMED-CT Code Diagnosis ICD10 Code Diagnosis Note [id number] Katherine Mendoza [place] [address] [address] 01/24/2020 14:05:01 01/24/2020 17:35:09 Mass of right breast [id number] N63.10 Very superficia l lump with a small skin lump that is draining. History of staph. Warm compress 4x daily. Good hygeine to prevent spread. Antibiotic s to be started tracey. RTC in 1 week for follow up. I did also order imaging for lump under the skin. Pt will call us 2 days after imaging to ensure we have rec'd results. Health Concerns Section Related Observation LastModified by Organization Detai ls LastModified Time None Recorded Concern Status LastModified by Organization Details LastModified Time None Recorded Advance Directives Directive None Recorded Payers Encounter Date Sequence Insurance Name Policy Number Policy Gutierrez Covered Member ID Gutierrez Member ID Guarantor Name 01/24/2020 1 [facility] (MEDICAID HMO) Daisy Padilla [id number] Notes Date Note Type Note Provider Name and Address Organization Details Recorded Time 01/24/2020 text/html Hard surface lum p on right breast x 2 months with some occasional clear drainage. Another small lump developed next to it yesterday and has had puss coming from it. 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 Katherine Mendoza [facility] 01/24/2020 15:59:01 OBGyn Episode Ob Episode Information Episode Created Date Number of Fetuses Patient Bloodtype Patient rh Status Prepregnancy Weight lbs Domestic Partner Domestic Partner Phone Father Name Bottle Cleaner Status 01/24/20 20 1 CLOSED Fetus Data First Name Last Name Admitted to NICU Weight (g) Sex Living Outcome Pediatric Complications Fetus ID Race Codes Race Delivery Type [id number] Vaginal Delivery Narendra Calculation Initial Narendra Date Initial Exam Date Initial Exam Provider Initial Ultrasound Date Last Menstrual Period Date Ultra Sound Weeks Gestation 0 Eighteen To Twenty Week Narendra Update Ultra Sound Date Fundal Height At Umbil Quickening Date Ultra Sound Latest Weeks Gestation Final Narendra Confirmed By Final Narendra Confirmed Date Final Narendra Date Ultra Sound Latest Days Gestation 0 0 Menstrual History Last Menstrual Date Menses Monthly On Bcp Conception Prior Menses Frequency Hcg Plus Date Menarche Onset Age Delivery Information Delivery Date Delivery Type Labor Anesthesia Weeks Gestation Incision Type Labor Labor Length Hrs Delivered By Post Complications Tubal Sterilization Discharge Date Comments 9 Discharge Information Feeding Method Contraceptive Method Maternal HG B and HCT Levels Ob Episode Information Episode Created Date Number of Fetuses Patient Bloodtype Patient rh Status Prepregnancy Weight lbs Domestic Partner Domestic Partner Phone Father Name Bottle Cleaner Status 01/24/20 20 1 CLOSED Fetus Data First Name Last Name Admitted to NICU Weight (g) Sex Living Outcome Pediatric Complications Fetus ID Race Codes Race Delivery Type [id number] Vaginal Delivery Narendra Calculation Initial Narendra Date Initial Exam Date Initial Exam Provider Initial Ultrasound Date Last Menstrual Period Date Ultra Sound Weeks Gestation 0 Eighteen To Twenty Week Narendra Update Ultra Sound Date Fundal Height At Umbil Quickening Date Ultra Sound Latest Weeks Gestation Final Narendra Confirmed By Final Narendra Confirmed Date Final Narendra Date Ultra Sound Latest Days Gestation 0 0 Menstrual History Last Menstrual Date Menses Monthly On Bcp Conception Prior Menses Frequency Hcg Plus Date Menarche Onset Age Delivery Information Delivery Date Delivery Type Labor Anesthesia Weeks Gestation Incision Type Labor Labor Length Hrs Delivered By Post Complications Tubal Sterilization Discharge Date Comments 8 Discharge Information Feeding Method Contraceptive Method Maternal HG B and HCT Levels
--- OUTSIDE RECORDS SUMMARY | 2024-05-24 13:14 | XMS_ITS | Clinical Summary ---
Author Organization [facility] Address [address] [place] [address] Phone Care Team Providers Care Law Firm Administrator Name Role Phone Jeremiah Thomas MD Primary Care Provider [phone] Allergies No known active allergies Medications Blood Pressure Monitoring (BLOOD PRESSURE CUFF) Misc 1 Units by Does not apply route daily. 1 Each 12/25/19 18 Active promethazine-dextr omethorphan (PROMETHAZINE-DM) 6.25-15 MG/5ML Syrup Take 5 mL by mouth every 4 hours as needed for Cough. 240 mL 06/29/19 20 Active SUMAtriptan (IMITREX) 50 MG TabletIndications: Chronic nonintractable headache, unspecified headache type Take 1 Tab by mouth once as needed for Migraine. Use as directed. May repeat dose in 2 hours if headache recurs. 6 Tab 06/29/19 20 Active albuterol 108 (90 Base) MCG/ACT Aerosol Solution take 2 Puffs by inhalation every 4 hours as needed for Wheezing or Cough. 1 Inhaler 10/20/19 20 Active atenolol (TENORMIN) 50 MG TabletIndications: Essential hypertension Take 1 Tab by mouth daily. 30 Tab 10/20/19 20 Active FLUoxetine (PROZAC) 20 MG CapsuleIndications :Depression, unspecified depression type Take 2 Caps by mouth daily. 60 Cap 10/20/19 20 Active hydroCHLOROthiazid e 25 MG TabletIndications: Essential hypertension Take 1 Tab by mouth daily. 30 Tab 10/20/19 20 Active hydrOXYzine (ATARAX) 25 MG TabletIndications: Mixed anxiety and depressive disorder Take 1 Tab by mouth every 6 hours as needed for Anxiety. 90 Tab 10/20/19 20 Active albuterol 108 (90 Base) MCG/ACT Aerosol Solution take 2 Puffs by inhalation every 4 hours as needed for Wheezing or Cough (Two puffs every 4 hr for wheezing, cough, shortness of breath). 1 Inhaler 1 12/05/19 20 Active albuterol (PROVENTIL, VENTOLIN) (2.5 MG/3ML) 0.083% Nebulizer Soln 3 mL by Nebulization route every 6 hours as needed for Wheezing, Shortness of Breath or Cough for up to 25 doses. 25 Vial 12/05/19 20 Active naproxen (NAPROSYN) 500 MG Tablet Take 1 Tab by mouth 2 times daily (with meals). 30 Tab 12/21/19 20 Active methylPREDNISolone (MEDROL DOSPACK) 4 MG Tablet Therapy Pack See product package insert for dosing schedule 21 Tab 04/11/20 20 Active cloNIDine (CATAPRES) 0.2 MG Tablet Take 1 Tablet by mouth 2 times daily. 60 Tablet 08/27/19 22 Active amLODIPine (NORVASC) 10 MG Tablet Take 10 mg by mouth daily. Active HYDROcodone-acetam inophen (NORCO) 5-325 MG TabletIndications: Tibia/fibula fracture, right, closed, initial encounter Take 1 Tablet by mouth every 6 hours as needed for Moderate or more severe pain. 20 Tablet 04/30/19 24 Active Active Problems Problem Noted Date Diagnosed Date Intractable migraine without aura and without status migrainosus 10/26/2018 Dysfunctional uterine bleeding 12/24/2017 Tobacco user 12/24/2017 Adnexal mass 03/04/2017 Chronic headache disorder 06/10/2016 High blood pressure 06/10/2016 Mixed anxiety and depressive disorder 06/10/2016 Immunizations Immunization Administration Dates Next Due Influenza Vaccine, Quadrivalent, PF 03/04/2017 Pneumococcal Vaccine Adult - 23 Valent 7 TDAP Vaccine 04/30/2023 Family History Medical History Relation Name Comments Cancer Maternal Aunt Diabetes Maternal Aunt Thyroid Disease Maternal Aunt Cancer Maternal Grandmother colon, breast Diabetes Maternal Grandmother Thyroid Disease Maternal Grandmother Diabetes Mother Heart Attack Mother Heart Disease Mother Thyroid Disease Mother Relation Name Status Comments Maternal Aunt Alive Maternal Grandmother Alive Mother Alive Social History Tobacco Use Types Packs/Day Years Used Date Smoking Tobacco: Every Day Cigarettes Smokeless Tobacco: Never Tobacco Cessation:Ready to Q uit: No; Counseling Given: Yes Alcohol Use Standard Drinks/Week Comments Never 0 (1 standard drink = 0.6 oz pur e alcohol) socially Comments No Sex and Gender Information Value Date Recorded Sex Assigned at Not on file Legal Sex Female 10:44 PM CDT Gender Identity Not on file Sexual Orientation Not on file Last Filed Vital Signs Vital Sign Reading Time Taken Comments Blood Pressure 126/100 04/30/2023 2:15 PM BLOW OFF WORKER Pulse 90 04/30/2023 2:15 PM BLOW OFF WORKER Temperature 36.9 ??C (98.5 ??F) 04/30/2023 12:[address] Respiratory Rate 16 04/30/2023 2:15 PM BLOW OFF WORKER Oxygen Saturation 100% 04/30/2023 12:35 PM BLOW OFF WORKER Inhaled Oxygen Concentration - - Weight 138.3 kg (305 lb) 04/30/2023 12:35 PM BLOW OFF WORKER Height 188 cm (6' 2 ) 04/30/2023 12:35 PM BLOW OFF WORKER Body Mass Index 39.16 04/30/2023 12:35 PM BLOW OFF WORKER Plan of Treatment Health Maintenance Due Date Last Done Comments Hepatitis C Virus (HCV) Screening 1982 Hepatitis B Immunization (1 of 3 - 19+ 3-dose series) 2001 Pneumococcal Immunization Combined (2 of 2 - PCV) 03/04/2018 03/04/2017 Influenza Immunization (#1) 2023 03/04/2017 SARS-COV-2 Immunization (3 - season) 2023 06/13/2021, 05/14/2021 Td Immunization Every 10 Yea rs (Adults With 1 Tdap) 04/30/2033 04/30/2023 Respiratory Syncytial Virus (RSV) Immunization (Adult) (1 - 1-dose 75+ series) 2057 Discussion re Starting/Frequency of Mammograms Completed 03/06/2019 Meningococcal Immunization (ACWY) Aged Out No longer eligible b ased on patient's age to complete this topic Rotavirus Immunization Aged Out No lo nger eligible based on patient's age to complete this topic Procedures Procedure Name Priority Date/Time Associated Diagnosis Comments LIONEL DIAG BILATERAL DIGITAL W CAD W EMI Routine 03/06/2019 3:45 PM BLOW OFF WORKER Unspecified lump in the left breast, upper inner quadrant Family history of malignant neoplasm of breast from Last 3 Months or Most Recently Relevant to Health Maintenance Results * LIONEL DIAG BILATERAL DIGITAL W CAD W EMI (03/06/2019 3:45 PM BLOW OFF WORKER) Anatomical Region Laterality Modality breast Bilateral Mammography 03/06/2019 2:29 PM BLOW OFF WORKER Narrative 03/06/2019 5:18 PM BLOW OFF WORKER - LIONEL DIAG BILATERAL DIGITAL W CAD W EMI - LIONEL US BREAST LIMITED MUSHTAQ BILATERAL DIGITAL DIAGNOSTIC MAMMOGRAM 3D/2D WITH CAD AND TARGETED LEFT ULTRASOUND WITH MEDIOLATERAL OBLIQUE CRANIOCAUDAL: 03/06/2019 The study was acquired using digital technology and interpreted from soft copy. ?? Current study was also evaluated with ICAD version 7.2. ?? CLINICAL: Baseline diagnostic study. Patient reports a left breast medial lump. No problems to report with the right breast. Personal history of ovarian cancer with hysterectomy. Maternal grandmother had bilateral breast cancer. ?? COMPARISONS: No prior exams were available for comparison. ?? BREAST TISSUE:There are scattered fibroglandular densities in both breasts. ?? FINDINGS: No significant masses, calcifications, or other findings are seen in either breast on the mammogram or left targeted ultrasound. ??No lesion is seen underlying the palpable area of concern at the 8 o'clock position of the left breast, 4 centimeters from the nipple. IMPRESSION: OVERALL STUDY BIRADS: 1 NEGATIVE There is no mammographic or targeted sonographic evidence of malignancy. A 4 year screening mammogram is recommended. ?? The patient has been or will be contacted. ?? Electronically signed by: Candelaria Shrestha M.D. ? ll/:03/06/2019 16:19:02 ?? Carton Folder: Elizabeth Neil ([place]), [facility] letter sent: Normal Exam ?? Reading location: [facility] OVERALL STUDY BIRADS: 1 Negative Procedure Note Candelaria Shrestha MD - 03/06/2019 - LIONEL DIAG BILATERAL DIGITAL W CAD W EMI - LIONEL US BREAST LIMITED MUSHTAQ BILATERAL DIGITAL DIAGNOSTIC MAMMOGRAM 3D/2D WITH CAD AND TARGETED LEFT ULTRASOUND WITH MEDIOLATERAL OBLIQUE CRANIOCAUDAL: 03/06/2019 The study was acquired using digital technology and interpreted from soft copy. Current study was also evaluated with ICAD version 7.2. CLINICAL: Baseline diagnostic study. Patient reports a left breast medial lump. No problems to report with the right breast. Personal history of ovarian cancer with hysterectomy. Maternal grandmother had bilateral breast cancer. COMPARISONS: No prior exams were available for comparison. BREAST TISSUE:There are scattered fibroglandular densities in both breasts. FINDINGS: No significant masses, calcifications, or other findings are seen in either breast on the mammogram or left targeted ultrasound. No lesion is seen underlying the palpable area of concern at the 8 o'clock position of the left breast, 4 centimeters from the nipple. IMPRESSION: OVERALL STUDY BIRADS: 1 NEGATIVE There is no mammographic or targeted sonographic evidence of malignancy. A 4 year screening mammogram is recommended. The patient has been or will be contacted. Electronically signed by: Candelaria Shrestha M.D. ll/:03/06/2019 16:19:02 Carton Folder: Elizabeth Neil ([place]), [facility] letter sent: Normal Exam Reading location: [facility] OVERALL STUDY BIRADS: 1 Negative us Laly Morales MD IMG MAMMO ORDERABLES Final Resu lt from Last 3 Months or Most Recently Relevant to Health Maintenance Additional Health Concerns Infection Onset Date Last Indicated Other 12/05/2019 12/05/2019 Insurance MEDICAID [place] Care Teams Law Firm Administrator Relationship Specialty Start Date End Date Jeremiah Thomas MD 2 [facility] [place] [address] PCP - General Atomic Physics Teacher 01/09/23
--- OUTSIDE RECORDS SUMMARY | 2024-05-24 13:14 | XMS_ITS | Continuity of Care Document ---
Author Organization [facility] Address [address] [place] [address] Phone Care Team Providers Care Machine Shorthand Teacher Name Role Phone Doser Johnny DONIS Unavailable Unavailable Allergies, Adverse Reactions, Alerts Substance Reaction Status Criticality No Known Allergies Active No Inform ation Procedures Procedure Date Office/outpatient visit,est, mod 2023 Supplemental Report Office/outpatient visit,est, mod 2023 Asp/inject intermed joint/bursa w/o US g uidance Kenalog 10mg/mL Supplemental Report X-ray exam foot, minimum 3 views 2023 X-ray exam ankle, minimum 3 views Office/outpatient visit,est, mod 2023 Supplemental Report X-ray exam foot, minimum 3 views 2023 X-ray exam ankle, minimum 3 views Independent Medical Examination FANNIE ASO ERIKA Lace Up Ankle Stabilizer 2023 Pre Payment Advance Directives Directive Yes / No Effective Date File Name No Information Encounters Encounter Description Practice Location Reason(s) For Visit Diagnoses Date Provider Providers Copied on Encounter [facility], [address], [place], [place], [id number], [place] tel:[phone] [facility] No Information Nov-0 4-202 4 Doser Johnny. [address] [facility] [address], [place], [place], [id number] , [place]. tel:[phone] Office/outpat ient visit,est, [facility], [address] [address], [place], [place], [id number], [place] tel:[phone] [facility] Still pain in my right ankle (chief complaint) Post-traumati c osteoarthriti s, right ankle and foot 4 Doser Johnny. [address] [facility] [address], [place], [place], [id number] , [place]. tel:[phone] Office/outpat ient visit,est, [facility], [address] [address], [place], [place], [id number], [place] tel:[phone] [facility] Still pain in ankle (chief complaint) Post-traumati c osteoarthriti s, right ankle and footPain in right ankle Oct- 4 Doser Johnny. [address] [facility], [address] [address], [place], [place], [id number] , [place]. tel:[phone] Office/outpat ient visit,est, [facility], [address] [address], [place], [place], [id number], [place] tel:[phone] [facility] Check up and pain in my ankle still (chief complaint) Pain in right footFx of right ankle, initial encounter for closed fxInj musc/tend peroneal grp at low leg level, right leg, init 4 Doser Johnny. [address] [facility], [address] [address], [place], [place], [id number] , [place]. tel:[phone] Independent Medical Examination FANNIE [facility], [address] [address], [place], [place], [id number], [place] tel:[phone] [facility] Broken right Ankle (chief complaint) Pain in right footFx of right ankle, initial encounter for closed fx Jul-3 4 Doser Johnny. [address] [facility], [address], [place], [place], [id number] , [place]. tel: [phone] [facility], [address], [place], [place], [id number], [place] tel:[phone] [facility] No Information Doser Johnny. [address] [facility], [address], [place], [place], [address] , [place]. tel: [phone] Family History Family Member Type Diagnosis Age At Onset Brother Problem (finding) Diabetes Mother Problem (finding) Cancer, unknown Brother Problem (finding) Hypertension Mother Problem (finding) Hypertension Mother Problem (finding) Diabetes Mother Problem (finding) Heart Disease Payers Payer name Insurance type Covered constitution party ID Verónica de dios(s) Juan [id number] Social History Type Description Quantity Date Captured Comments Alcohol Use Details Unknown Caffeine Use Details Unknown Tobacco Use Status Smoking Status No Information Sex Female Chief Complaint And Reason For Visit No Information Reason For Referral Reason For Referral No Information Plan Of Treatment Date Type Action Status Referral Ordered: MRI lower extrm joint, w/o contrast RT ordered Referral Ordered: X-ray exam foot, minimum 3 views RT ordered Referral Ordered: X-ray exam ankle, minimum 3 views RT ordered History Of Present Illness Encounter Date Complaint History Of Prese nt Illness Still pain in my right ankle Pat ient returns for her right ankle. Still pain in ankle Patient come s in for MRI results of her right ankle. Check up and pain in my ankle st ill Broken right Ankle Functional Status Date Functional Assessmen t No Information Instructions Date Instruction Additional Infor mation No Information Assessments Type Assessment Date No Information Patient Care Teams Name Effective Dates (start - stop) Status Members No Information
--- OUTSIDE RECORDS SUMMARY | 2024-05-24 13:14 | XMS_ITS | Encounter Summary ---
Author Organization [facility] Address [address] [place] [address] Phone Care Team Providers Care Multimedia Coordinator Name Role Phone Rajiv Corral MD Primary Care Provider [phone] Laura Alcala MD Primary Care Provider [phone] Miscellaneous, Not In File Primary Care Provider Unavailable Jeremiah Thomas MD Primary Care Provider [phone] Encounter Details Date Type Department Care Team (Late st Contact Info) Description 05/14/2017 Orders Only [facility] ProviderYudelka MD [address] [place], [place] [id number] Social History Tobacco Use Types Packs/Day Years Used Date Smoking Tobacco: Every Day Cigarettes Smokeless Tobacco: Never Alcohol Use Standard Drinks/Week Comments Yes 0 (1 standard drink = 0.6 oz pur e alcohol) Comments No Sex and Gender Information Value Date Recorded Sex Assigned at Not on file Legal Sex Female 1:47 AM TESTING COORDINATOR Gender Identity Not on file Sexual Orientation Not on file documented as of this encounter Plan of Treatment Not on file documented as of this encounter Procedures Procedure Name Priority Date/Time Associated Diagnosis Comments DISCHARGE LABORATORY CUMULATIVE REPORT 05/14/2017 12:00 AM TESTING COORDINATOR documented in this encounter Results * DISCHARGE LABORATORY CUMULATIVE REPORT (05/14/2017 12:00 AM TESTING COORDINATOR) Narrative 05/14/2017 12:00 AM TESTING COORDINATOR Ordered by an unspecified provider. Historical Provider LAB BLOOD ORDERABLES Fátima l Result documented in this encounter Visit Diagnoses Not on filedocumented in this encounter Additional Health Concerns Infection Onset Date Last Indicated Resolved Time COVID: Suspected 04/22/2021 04/22/2021 04/22/2021 1:10 PM TESTING COORDINATOR documented as of this encounter Care Teams Multimedia Coordinator Relationship Specialty Start Date End Date Rajiv Corral MD [address] [place] [address] PCP - General 06/07/16 07/27/17 Laura Alcala MD [address] [place] [address] PCP - General 07/28/17 12/20/17 Miscellaneous, Not In File PCP - General 12/21/17 Jeremiah Thomas MD PCP - General Family Medicine 08/28/21 documented as of this encounter
--- OUTSIDE RECORDS SUMMARY | 2024-05-24 13:14 | XMS_ITS | Clinical Summary ---
Author Organization [facility] Address [address] [place] [address] Care Team Providers Care Manager Of International Name Role Phone Jeremiah Thomas MD Primary Care Provider [phone] Allergies No known active allergies Medications atorvastatin (LIPITOR) 10 mg tablet Take 1 tablet (10 mg total) by mouth daily 90 tablet 3 11/24/19 24 025 Active valsartan (DIOVAN) 320 mg tablet Take 1 tablet (320 mg total) by mouth daily 90 tablet 1 12/31/19 24 025 Active metFORMIN XR (GLUCOPHAGE XR) [...] 1 tablet (7 mg total) by mouth acid patroller before breakfast 90 tablet 03/30/20 24 025 [...] 4 Type 2 diabetes mellitus with hyperglycemia ([facility]) 11/24/2023 Assessment & Plan (05/01/2024 7:49 AM REAL ESTATE SERVICES ADMINISTRATOR): Lab Results Component Value Date HGBA1C 6.2 [...] 11/18/2023 Assessment & Plan (05/01/2024 7:52 AM REAL ESTATE SERVICES ADMINISTRATOR): Discussed lifestyle modifications, diet and exercise. Routine blood work ordered/reviewed today. Yearly vision and dental examinations. Assessment & Plan (11/18/2023 3:29 PM CDT): Discussed lifestyle modifications, diet and exercise. Routine blood work ordered/reviewed today. Yearly vision and dental examinations. New onset type 2 diabetes mellitus ([facility]) 04/2023 Assessment & Plan (11/18/2023 3:29 PM CDT): Lab Results Component Value Date HGBA1C 5.9 (H) 08/28/2021 HGBA1C 5.4 06/04/2017 Lab Results Component Value Date LDLCALC 92 08/28/2021 CREATININE 0.76 08/28/2021 Previously controlled but worsening However, now she states she has been very thirsty and urinating frequently Morbid obesity 11/18/2023 Assessment & Plan (05/01/2024 7:48 AM REAL ESTATE SERVICES ADMINISTRATOR): Wt Readings from Last 3 Encounters: 05/01/24 [...] 08/28/2021 Assessment & Plan (05/01/2024 7:48 AM REAL ESTATE SERVICES ADMINISTRATOR): Wt Readings from Last 3 Encounters: 05/01/24 [...] 08/28/2021 Assessment & Plan (05/01/2024 7:47 AM REAL ESTATE SERVICES ADMINISTRATOR): BP Readings from Last 3 Encounters: 05/01/24 [...] 08/28/2021 Cough 05/27/2015 08/28/2021 Overview (07/23/2016): Cough Encounters Date Type Department Care Team Description 05/17/2024 Telephone [facility] [address] [facility] [address] [place] [address] Nadya Henriquez, CHEMICAL INSTRUMENTATION OFFICER 05/01/2024 7:30 AM REAL ESTATE SERVICES ADMINISTRATOR Office Visit [facility] Medical [facility] Primary Care at [address] [place] [address] Jeremiah Thomas MD Annual physical exam (Primary Dx); Type 2 diabetes mellitus with hyperglycemia, without long-term current use of insulin (HCC); Hypertension, essential; Class 2 severe obesity due to excess calories with serious comorbidity and body mass index (BMI) of 37.0 to 37.9 in adult (HCC); Morbid obesity (HCC); Dizziness 04/26/2024 Telephone [facility] Primary Care at [address] [place] [address] Jeermiah Thomas MD 03/03/2024 Telephone [facility] Primary Care at [address] [address] Jeremiah Thomas MD from Last 3 Months Immunizations Name Administration Dates Next Due Influenza, Quadrivalent, Spl it, Preservative Free, Intramuscular 03/04/2017 Influenza, Unspecified 05/01/2024(Deferr ed: Patient Refused),01/26/2024(Deferred: Patient Refused),11/24/2023(Deferred: Patient Refused),07/17/2022(Deferred: Patient Refused),01/17/2021(Deferred: Patient Refused),01/18/2020(Deferred: Patient Refused) Pneumococcal Polysaccharide PPV23 03/04/2017 Tdap 04/30/2023 Surgical History Surgery Date Site/Laterality Comments OTHER SURGICAL HISTORY surgery on rt. 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, managed as type 2 (HCC) Hyperlipidemia Family History Medical History Relation Name Comments Diabetes type II Brother Breast cancer Maternal Grandmother Colon cancer Maternal Grandmother Ovarian cancer Maternal Grandmother Diabetes type II Mother Heart attack Mother Hypertension Mother Endometrial cancer Neg Hx Thyroid cancer Neg Hx Relation Name Status Comments Brother Maternal Grandmother Mother Social History Tobacco Use Types Packs/Day Years [...] on file Legal Sex Female 1:47 AM REAL ESTATE SERVICES ADMINISTRATOR Gender Identity Not on file Sexual Orientation Not on file Obstetrics History Para Term AB IAB SAB Ectopic Multiple Livin g Live Births 2 2 2 Date Outcome GA Total Labor Labor/2nd/3rd Weight Sex Type Anes PTL Kassie A1 A5 Name Clin 2007 Term 40w 0d M Vaginal 2008 Term 38w 0d M Vaginal Last Filed Vital Signs Vital Sign Reading Time Taken Comments Blood Pressure 112/60 05/01/2024 7:23 AM REAL ESTATE SERVICES ADMINISTRATOR Pulse 110 05/01/2024 7:23 AM REAL ESTATE SERVICES ADMINISTRATOR Temperature 36.6 ??C (97.8 ??F) 11/27/2021 4:18 PM CD T Respiratory Rate 16 05/01/2024 7:23 AM REAL ESTATE SERVICES ADMINISTRATOR Oxygen Saturation 98% 05/01/2024 7:23 AM REAL ESTATE SERVICES ADMINISTRATOR Inhaled Oxygen Concentration - - Weight 132.6 kg (292 lb 4.8 oz) 05/01/2024 7:23 AM REAL ESTATE SERVICES ADMINISTRATOR Height 188 cm (6' 2.02 ) 05/01/2024 7:23 AM REAL ESTATE SERVICES ADMINISTRATOR Body Mass Index 37.51 05/01/2024 7:23 AM REAL ESTATE SERVICES ADMINISTRATOR Plan of Treatment Health Maintenance Due Date Last Done Comments Dilated Eye Exam 1982 Foot Exam 1982 Varicella Vaccines (1 of 2 - 13+ 2-dose series) 09/22/1995 Pneumococcal vaccine <65 (2 of 2 - PCV) 03/04/2018 03/04/2017 Covid-19 Vaccine (3 - season) 2023 06/13/2021, 05/14/2021 Influenza Vaccine (#1) 2023 03/04/2017 Hemoglobin A1C 10/29/2024 05/01/2024, 08/0 04/2023, 08/28/2021, Additional history exists Albumin Creatinine Ratio, Urine 11/17/2024 11/18/2023, 08/28/2021 Lipid Panel 11/17/2024 11/18/2023, 08/28/2021 eGFR 11/17/2024 11/18/2023, 08/17, 03/16/2021, Additional history exists Breast Cancer Screening-Mammogram 12/01/2024 12/02/2023, 11/25/2023, 03/06/2019, Additional history exists Depression Screening 05/01/2025 05/01/2024, 01/26/2024, 11/24/2023, Additional history exists Regular Well Visit/Exam 18-64 05/01/2025 05/01/2024, 02/15/2024, 11/18/2023 DTaP/Tdap/Td Vaccine (2 - Td or Tdap) 04/30/2033 04/30/2023 Hepatitis B Screening Completed 11/18/2023 Hepatitis C Screening Completed 11/18/2023 Cervical Cancer Screening Discontinued 02/15/2024, HPV Vaccines Aged Out No longer eligi ble based on patient's age to complete this topic Procedures Procedure Name Priority Date/Time Associated Diagnosis Comments POCT HEMOGLOBIN A1C Routine 05/01/2024 7:32 AM REAL ESTATE SERVICES ADMINISTRATOR Type 2 diabetes mellitus with hyperglycemia, without [...] (ABNORMAL) POCT hemoglobin A1c (05/01/2024 7:32 AM REAL ESTATE SERVICES ADMINISTRATOR) Pathologist [facility] Hemoglobin A1C, POC 6.2 4.0 - 5.6 % Capillary blood 05/01/2024 7 :32 AM REAL ESTATE SERVICES ADMINISTRATOR us Jeremiah Thomas MD POINT OF CARE TEST ORDERABLES Fi nal Result * High Risk HPV DNA Detection with Genotyping (Molecular component) (02/15/2024 1:12 PM CDT) Pathologist [facility] HPV HR 16 Not Detected Not Detected [facility] Comment:Testing performed by : [facility], [address] [facility] [place]., [address] HPV HR 18 Not Detected Not Detected [facility] Comment:Testing performed by : [facility], [address] [facility] [place]., [address] HPV HR Non 16/18 Not Detected Not Detected SARAH Comment: Interpretive Data Nucleic acid amplification for [...] this test have been verified by the [facility] Molecular Infectious Disease laboratory. Correlate with separately reported cytology results, as applicable. Interpretive data last revised 22 Testing performed by: [facility], [address] [place]., [address] Endocervical 02/15/2024 1:12 PM CDT 02/16/2024 12:28 PM CDT Narrative SARAH - 02/16/2024 5:55 PM CDT Clinical history and diagnosis->hyst Number of vials->1 Testing type->Screening Last menstrual period (date if known)->hyst Nadya Henriquez CHEMICAL INSTRUMENTATION OFFICER LAB BODY FLUIDS AND STOOLS ORDER YENI Final Result [facility] [address] [address] Department [place] [address] [facility] * Diagnostic Mammogram Bilateral W Edward (12/02/2023 9:50 AM CDT) Anatomical Region Laterality Modality Breast Bilateral Mammography 12/02/2023 10:2 1 AM CDT Impressions 12/02/2023 10:21 AM CDT ACR BI-RADS Category 2 - Benign. COMMENTS: ?? EXAM: Left Breast Ultrasound ?? focal limited ??Ultrasound was performed [id number] EXAM DATE AND TIME: 12/02/2023 10:00 AM [...] Breast Ultrasound ??focal limited ??Ultrasound was performed [id number] EXAM DATE AND TIME:12/02/2023 10:00 AM HISTORY: [...] BREAST BILATERAL LIMITED EXAM: Bilateral Diagnostic Mammogram [id number] EXAM DATE AND TIME: 12/02/2023 10:00 AM [...] ASSESSMENT: There is no evidence of malignancy. Jeremiah Thomas MD IMG MAMMO PROCEDURES Final Resul t * eGFR (11/18/2023 3:45 PM CDT) Pathologist [facility] eGFR >90 >=60 mL/min/1. 73 m2 Comment: [...] 3:45 PM CDT 11/18/2023 4:14 PM CDT Jeremiah Thomas MD LAB BLOOD ORDERABLES Final Resul t SARAH [facility] [address] [facility] Department [place] [address] * Hepatitis C antibody Blood (11/18/2023 3:45 PM CDT) [facility] Hep C Ab Nonreactive Nonreactive Comment: Interpretive [...] last revised on 2019. Testing performed by: [address] [address] Blood 11/18/2023 3:45 PM CDT 11/19/2023 9:05 AM CDT us Jeremiah Thomas MD LAB MICROBIOLOGY - GENERAL ORDER YENI Edited Result - Final Performing Organization Address City/[facility]/ZIP Co de Phone Number SARAH DUKES (KERI) [address] [facility] [place] [address] * (ABNORMAL) Albumin Creatinine Ratio, Urine (11/18/2023 3:45 PM CDT) Albumin Ur 212.1 mg/L Comment: Interpretive Data No reference range established. Current interpretive data was last revised 2018. Testing performed by: [address] [address] Creatinine Ur 173.0 mg/dL SARAH DUKES (KERI) Comment: Interpretive Data No reference range established. Current interpretive data was last revised 2018. Testing performed by: [address] [address] Albumin Creatinine Ratio, Ur 123(H) 1 - 29 mg/g SARAH DUKES (KERI) Comment:Testing performed by : [address] [address] Urine 11/18/2023 3:45 PM CDT 11/19/2023 9:05 AM CDT us Jeremiah Thomas MD LAB URINE ORDERABLES Final Resul t Performing Organization Address City/[facility]/ZIP Co de Phone Number SARAH DUKES (FOSSIL) [address] Department [place] [address] * (ABNORMAL) Lipid panel (11/18/2023 3:45 PM CDT) [facility] Cholesterol 168 30 - 199 mg/dL Comment: [...] 2017. Triglycerides 196(H) <=149 mg/dL SARAH DUKES (FOSSIL) Comment: Interpretive Data Ages < or = [...] revised on 2017. Chol/HDL ratio 4 ANCELMO Dillon ROSELINE (KERI) Blood 11/18/2023 3:45 PM CDT 11/18/2023 4:14 PM CDT us Jeremiah Thomas MD LAB BLOOD ORDERABLES Final Resul t SARAH DUKES (FOSSIL) [address] [facility] Department [place] [address] from Last 3 Months or Most Recently Relevant to Health Maintenance Insurance [facility] [employer] [facility] Advance Directives For more information, please contact: [phone] Documents on File Type Date Recorded Patient Cap Inspector Expl anation ADVANCE DIRECTIVE 08/08/2017 12:00 AM Care Teams Manager Of International Relationship Specialty Start Date End Date Jeremiah Thomas MD PCP - General Family Medicine 08/28/21
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
--- OUTSIDE RECORDS SUMMARY | 2024-05-24 13:15 | XMS_ITS | Continuity of Care Document ---
Author Organization [facility] Address [address] [place] [address] Phone Care Team Providers Care Wireless Watcher Name Role Phone Doser Johnny DONIS Unavailable [...] on Encounter [facility], [address], [place], [place], [id number], [place] tel:[phone] [facility] No Information Nov-0 4-202 4 Doser Johnny. [address] [facility] [place] [address], [place], [place], [id number] , [place]. tel:[phone] Office/outpat ient visit,est, [facility], [address] [address], [place], [place], [id number], [place] tel:[phone] [facility] Still pain in my right ankle (chief complaint) Post-traumati c osteoarthriti s, right ankle and foot 4 Doser Johnny. [address] [facility], [place] [address], [place], [place], [id number] , [place]. tel:[phone] Office/outpat ient visit,est, [facility], [address] [address], [place], [place], [address], [place] tel:[phone] [facility] Still pain in ankle (chief complaint) Post-traumati c osteoarthriti s, right ankle and footPain in right ankle Oct- 4 Doser Johnny. [address] [facility], [place] [address], [place], [place], [id number] , [place]. tel:[phone] Office/outpat ient visit,est, [facility], [address] [address], [place], [place], [address], [place] tel:[phone] [facility] Check up and pain in my ankle still (chief complaint) Pain in right footFx of right ankle, initial encounter for closed fxInj musc/tend peroneal grp at low leg level, right leg, init 4 Doser Johnny. [address] [facility], [place] [address], [place], [place], [address] , [place]. tel:[phone] Independent Medical Examination FANNIE [facility], [address] [address], [place], [place], [id number], [place] tel:[phone] [facility] Broken right Ankle (chief complaint) Pain in right footFx of right ankle, initial encounter for closed fx Jul-3 4 Doser Johnny. [address] [facility], [place], [place], [id number] , [place]. tel: [phone] [facility], [address], [place], [place], [id number], [place] tel:[phone] [facility] No Information Doser Johnny. [address] [facility], [place], [place], [id number] , [place]. tel: [phone] Family History Family Member Type Diagnosis Age At Onset Brother Problem (finding) Diabetes Mother Problem (finding) Cancer, unknown Brother Problem (finding) Hypertension Mother Problem (finding) Hypertension Mother Problem (finding) Diabetes Mother Problem (finding) Heart Disease Payers Payer name Insurance type Covered green party ID Verónica de dios(s) Juan [id number] Social History Type Description Quantity Date Captured [...]
== END 2024-05-24 12:45 | disposition home or self-care (01) ==
PROVIDERS: Emergency Provider Registered Nurse
DX: H10.31 Unspecified acute conjunctivitis, right eye (principal); E78.5 Hyperlipidemia, unspecified; E11.9 Type 2 diabetes mellitus without complications; I10 Essential (primary) hypertension; F17.200 Nicotine dependence, unspecified, uncomplicated; Z79.899 Other long term (current) drug therapy
CPT/HCPCS: 99213; G0463